=== PATIENT | female | born 1960 | race Caucasian/White ===

== ENCOUNTER → 2025-04-01 14:59 | Outpatient (BNVA) | payer BC, SELFPAY | PROVIDERS: Visit Provider Thoracic Surgery (Cardiothoracic Vascular Surgery) | DX: I96 Gangrene, not elsewhere classified (principal); S81.802A Unspecified open wound, left lower leg, initial encounter; W55.22XA Struck by cow, initial encounter; I70.248 Atherosclerosis of native arteries of left leg with ulceration of other part of lower leg | CPT/HCPCS: 87070; 87077; 87176; 87186; 87205 ==